=== PATIENT | female | born 1955 | race Caucasian/White ===

== ENCOUNTER 2023-08-13 11:30 | Emergency (ER) | payer MEDICARE, MEDICAID ==
[~2023-08-13] VITALS: Ht 154.9 cm; Wt 80.0 kg
[2023-08-13 11:59] VITALS: BP 109/76; PULSE 127; RESP 18; O2SAT 100
[2023-08-13] MEDS ORDERED: PRED20TA PO (14:05)
[2023-08-13] MEDS ORDERED: ketorolac trometh inj. 60 MG/2 ML VIAL IM ONE (14:05)
[2023-08-13 14:18] VITALS: TEMP 98
--- NOTE | 2023-08-13 16:23 | NUR ---
SHEET TAKER ASSESSMENT REVIEWED, BY MARVIN RN; APPROVED
== END 2023-08-13 14:18 | disposition home or self-care (01) ==
LOC: ER 11:31
DX: S63.612A Unspecified sprain of right middle finger, initial encounter (principal); X58.XXXA Exposure to other specified factors, initial encounter; Y93.89 Activity, other specified; Y92.89 Other specified places as the place of occurrence of the external cause; Y99.8 Other external cause status
CPT/HCPCS: 73130; 96372; 99283; J1885; A6449